=== PATIENT | female | born 1945 | race Caucasian/White ===

== ENCOUNTER 2018-01-02 06:13 | Day surgery (SDC) | payer OTHER ==
[2018-01-01 17:44] VITALS: BMI 27.6
[2018-01-02] MEDS ORDERED: LIDOCAINE HCL/PF 1% SDV 5ML VIAL ONE (07:28)
[2018-01-02] MEDS ORDERED: ceFAZolin SODIUM 1 GM VIAL ONE (07:29)
[2018-01-02] MEDS ORDERED: BUPIVACAINE HCL/PF 0.5% (5MG/ML) 10 ML VIAL ONE (07:29)
[2018-01-02] MEDS ORDERED: DEXAMETHASONE SOD PHOSPHATE 4 MG/1 ML VIAL ONE (07:29)
[2018-01-02] MEDS ORDERED: SODIUM CHLORIDE 0.9% P/F 10 ML VIAL IJ ONE (07:29)
[2018-01-02] MEDS ORDERED: LIDOCAINE HCL/PF 2% SDV 5ML VIAL ONE (07:29)
[2018-01-02] MEDS ORDERED: PROPOFOL 20 ML ONE ×2 (07:32→08:40)
[2018-01-02] MEDS ORDERED: MIDAZOLAM HCL 2 MG/2 ML SINGLE DOSE VIAL ONE (07:34)
[2018-01-02] MEDS ORDERED: ceFAZolin SODIUM 1 GM VIAL IVPB ONE (08:11)
[2018-01-02] MEDS ORDERED: BUPIVACAINE HCL/PF 0.5% (5MG/ML) 10 ML VIAL IJ ONE (08:29)
[2018-01-02] MEDS ORDERED: LIDOCAINE HCL 1%, 10 MG/ML (50 mL VIAL) IJ ONE (08:29)
[2018-01-02] MEDS ORDERED: KETOROLAC TROMETHAMINE 30 MG/1 ML VIAL ONE (08:36)
[2018-01-02] MEDS ORDERED: ONDANSETRON 4 MG/2 ML VIAL IVPUSH PRN (08:38)
[2018-01-02] MEDS ORDERED: LACTATED RINGERS SOLUTION 1,000 ML IV SCH (08:45)
--- NOTE | 2018-01-02 09:01 | OP ---
Operative Note - Note: Operative Date: 01/02/18 Pre-Operative Diagnosis: right Dequervain's, ganglion cyst Operation: right Dequervain's release, tendon sheath excision, ganglion cyst excision Post-Operative Diagnosis: Same as Pre-op Surgeon: Charanjit Servin Research Manager: Roni Preston Anesthesiologist/[employer]: Dre Roe Anesthesia: Local, MAC Specimens Removed: tendon sheath, ganglion cyst Estimated Blood Loss (mls): 0 Fluid Volume Replaced (mls): 500 Operative Report Dictated: Yes
--- NOTE | 2018-01-02 09:49 | SPEC ---
DATE OF OPERATION: 01/02/2018 PREOPERATIVE DIAGNOSIS: Right De Quervains tenosynovitis and ganglion cyst. POSTOPERATIVE DIAGNOSIS: Right De Quervains tenosynovitis and ganglion cyst. PROCEDURE: Right De Quervains release, tendon sheath excision, and ganglion cyst excision. SURGEON: Charanjit Servin MD FACILITY OPERATIONS MANAGER: Roni Preston MD ANESTHESIOLOGIST: NADINE Roe ANESTHESIA: MAC with local injection of 12 mL of 0.5% Marcaine and 1% Lidocaine mix. DRAINS: None. COMPLICATIONS: None. BLOOD LOSS: None. BLOOD GIVEN: None. SPECIMEN: Tendon sheath and ganglion cyst, right wrist. FLUID REPLACEMENT: 500 mL. INDICATIONS: After understanding the potential risks, complications, alternatives and benefits of surgery versus nonsurgical treatment, the patient elected to undergo this procedure. PROCEDURE: Patient was brought to the operating room, peripheral IV placed, IV sedation given. One gram of IV Ancef was given. MAC anesthesia was induced. The tourniquet was applied to the right arm. The entire care was done under 3.8 loop magnification. The right upper extremity was prepped and draped in a sterile fashion. A longitudinal incision was marked out with a marking pen. A mix of 12 mL of 0.5% Marcaine, 1% Lidocaine were injected in and around the surgical area. The right upper extremity was then elevated, exsanguinated with an Esmarch bandage and the tourniquet inflated to 250 mmHg. A No. 15 scalpel blade was utilized to make a longitudinal incision. Subcutaneous hemostasis was achieved with a bipolar cautery. Dissection was done with a Littler scissors down to the first dorsal wrist compartment. Great care was taken to directly visualize and preserve all crossing sensory branches of the sensory nerve. Under direct visualization, the first dorsal wrist compartment was visualized and it was freed up from some adhesions with a [place] elevator. Next, a fresh No. 15 scalpel blade was utilized to open up the first dorsal wrist compartment, starting proximally and going distally both with the No. 15 scalpel blade and also with a Littler scissors. The anatomy was seen to have multiple slips of the abductor pollicis longus and the extensor pollicis brevis was in its own tendon tunnel. This was also released and the wall between the two excised. The roof of the tunnel was excised. This was all passed off the field as specimen. The volar lip of the first dorsal wrist compartment was preserved to prevent volar subluxation. The release was completed both distally and proximally in both compartments. I was able to bring out all slips through the wound with a Ragnell retractor and there were no obvious points of compression. The area was copiously irrigated and washed out, again explored and I didn't see any other abnormal tissue and therefore closure was begun. Undyed 4-0 Vicryl was used to close the deep dermal layer. Final skin reapproximation was done with a running subcuticular 4-0 Biosyn stitch. The area was then washed and dried, covered with Steri-Strips, 4 x 4's, fluffs between the fingers, Webril and Coban used to make a thumb spica Coban splint. There was a small 3-mm ganglion cyst on the first dorsal wrist compartment tendon sheath itself. The tourniquet was taken down after a total tourniquet time of 20 minutes. There were no complications during the case. The patient tolerated the procedure quite well and was brought to ambulatory recovery room in stable condition. Leana [id number]
--- NOTE | 2018-01-02 10:55 | HP ---
Satellite [facility] - Chief Complaint Chief Complaint: right wrist pain, mass History of Present Illness: right wrist Dequervain's, ganglion cyst History Source: Patient Limitations to Obtaining History: No Limitations - Past Medical History Allergies/Adverse Reactions: Allergies Allergy/AdvReac Type Severity Reaction Status Date / Time levofloxacin [From Levaquin] Allergy Intermediate Rash Verified 01/01/18 17:40 - Current Medications Current Medications: Home Medications Medication Instructions Recorded NK [No Known Home Medication] 01/01/18 Satellite Physical Exam - Physical Examination Vital Signs: Vital Signs Period Temp Pulse Resp BP Sys/Orr Pulse Ox Last 24 Hr 97.6 F-98.1 F 51-64 12-18 105-138/47-67 95-100 General Appearance: Well Nourished ENT: Clear Lung: Clear to auscultation Heart: Regular rate & rhythm Breasts: Soft Abdomen: Soft Extremities: No edema Satellite Impression/Plan - Impression/Plan Impression: right Dequervain's, ganglion cyst Operative Procedure: right Dequervain's release, tendon sheath excision, ganglion cyst excision Date to be Performed: 01/02/18
[2018-01-02 11:22] VITALS: BP 129/69; PULSE 76; TEMP 97.8
--- NOTE | 2018-01-03 15:36 | PATH ---
Surgical Pathology Report Patient Name: ZHANG MONTE [facility]. Rec. #: [id number] /Age/Gender: 1945 (Age: 72) / F Account: [id number] Location: U SURGICAL Taken: 01/02/2018 Received: 01/02/2018 Reported: 01/03/2018 Physicians: Leana Swenson M.D. Specimen(s) Received TENDON SHEATH WITH GANGLION CYST Clinical History Ganglion cyst, Dequervains tenosynovitis Final Diagnosis TENDON SHEATH GANGLION CYST, RIGHT, DE QUERVAIN'S RELEASE AND EXCISION: FRAGMENTS OF DENSE FIBROCONNECTIVE TISSUE WITH FOCAL MYXOID CHANGE CONSISTENT WITH GANGLION CYST AND FIBROADIPOSE TISSUE. Electronically Signed Jeniffer Cuevas M.D. Gross Description Received in formalin labeled "tendon sheath right side and ganglion cyst," is a 1.7 x 1.3 x 0.3 cm aggregate of russell-yellow soft tissue fragments, possibly containing a cyst. The specimen is submitted in toto in one cassette. 01/02/201801/02/2018
== END 2018-01-02 11:25 | disposition home or self-care (01) ==
LOC: JASU-SURG 06:13
PROVIDERS: ATTEND Orthopaedic Surgery
PROC: 0LN50ZZ Release Right Lower Arm and Wrist Tendon, Open Approach (ICD-10-PCS; principal; 2018-01-02 08:00)
PROC: 0LB50ZZ Excision of Right Lower Arm and Wrist Tendon, Open Approach (ICD-10-PCS; 2018-01-02 08:00)
DX: M65.4 Radial styloid tenosynovitis [de Quervain] (principal); M67.431 Ganglion, right wrist
CPT/HCPCS: 88304-TC; 94760

== ENCOUNTER 2022-01-09 05:16 | Day surgery (SDC) | payer OTHER ==
[2022-01-05 13:17] VITALS: BMI 27.9
[2022-01-09] MEDS ORDERED: ACETAMINOPHEN 325 MG TABLET (FP) PO PRN (06:53)
[2022-01-09] MEDS ORDERED: IBUPROFEN 400 MG TABLET (FP) PO PRN (06:53)
[2022-01-09] MEDS ORDERED: PROPOFOL 40 ML ONE (08:59)
[2022-01-09] MEDS ORDERED: SUCCINYLCHOLINE CHLORIDE 200 MG/10 ML SYRINGE ONE (09:00)
[2022-01-09] MEDS ORDERED: MIDAZOLAM HCL 2 MG/2 ML SINGLE DOSE VIAL ONE (09:00)
[2022-01-09] MEDS ORDERED: DEXAMETHASONE SOD PHOSPHATE 4 MG/1 ML VIAL ONE (09:49)
[2022-01-09] MEDS ORDERED: KETOROLAC TROMETHAMINE 30 MG/1 ML VIAL ONE (09:49)
[2022-01-09] MEDS ORDERED: ONDANSETRON 4 MG/2 ML VIAL IVPUSH PRN (10:26)
[2022-01-09] MEDS ORDERED: oxyCODONE HCL 5 MG TABLET PO PRN (10:26)
[2022-01-09] MEDS ORDERED: LACTATED RINGERS SOLUTION 1,000 ML IV SCH (10:30)
[2022-01-09 11:07] VITALS: PULSE 67; RESP 18; TEMP 97.8
[2022-01-09 12:13] VITALS: BP 138/67
== END 2022-01-09 12:05 | disposition home or self-care (01) ==
LOC: JASU-SURG 05:16
PROVIDERS: ATTEND Obstetrics & Gynecology
PROC: 0UJD8ZZ Inspection of Uterus and Cervix, Via Natural or Artificial Opening Endoscopic (ICD-10-PCS; 2022-01-09)
PROC: 0UB98ZZ Excision of Uterus, Via Natural or Artificial Opening Endoscopic (ICD-10-PCS; principal; 2022-01-09 09:30)
PROC: 0UDB7ZX Extraction of Endometrium, Via Natural or Artificial Opening, Diagnostic (ICD-10-PCS; 2022-01-09 09:30)
DX: N95.0 Postmenopausal bleeding (principal); D25.0 Submucous leiomyoma of uterus
CPT/HCPCS: 86850; 86900; 86901; 88305-TC; 94760